=== PATIENT | female | born 1980 | race Caucasian/White ===

== ENCOUNTER 2022-11-07 01:39 | Day surgery (SDC) | payer OTHER, SELFPAY ==
[2022-10-30 19:05] VITALS: BMI 24.3
--- NOTE | 2022-10-30 19:06 | SUR.PREOP ---
Report to the Outpatient Waiting Room, entrance under the green pavilion located off [facility], at time _0700 on date 11/07/22 . Planned Procedure Time: _0900 . Time changes happen often and if your time is changed the preop area will call you the afternoon before. - You and your visitor will be asked to self-screen and do not enter if you have any COVID symptoms. - Only one visitor is requested with a max of two and NO children visitors are allowed at this time. - The patient visitor may be requested to leave or wait in car when not with patient due to distancing restrictions. - A mask is optional within the hospital. Patients may have clear liquids (water, carbonated beverages, clear teas, apple juice) until 3 hours prior to surgery with a maximum of 20 ounces. - No food from midnight until time of surgery - Infants may have breast milk until 4 hours before surgery, formula 6 hours prior to surgery. - Children will be allowed to drink immediately following surgery. If applicable, please bring a bottle or sippy cup to assist with drinking. Juice, water, soda, and popsicles are readily available. For infants on formula, please bring formula the day of surgery. Pacifiers are allowed. Take the following medications with a SIP of water the morning of surgery: __levothyroxine,alprazolam Medications to discontinue per physician n/a Date to take last dose____n/a Please no make-up, nail estonian, hairspray, perfume, deodorant, or body powder the day of surgery. No jewelry (including any body piercings) or valuables the day of surgery, leave them at home. Please take a shower or bath the night before, or the morning of, surgery with an antibacterial soap. Wear comfortable, loose fitting clothing. Children are encouraged to wear pajamas. - Jewelry must be removed prior to entering the operating room. Rings and piercings that are not removed may be cut off. - The hospital will not accept responsibility for valuables. - Please leave all valuables, including medications, at home the day of surgery. If you are going home after surgery, a licensed subway train driver must drive you home. - NO public transportation without another adult if you receive anesthesia. - We recommend that an adult stay with you for 24 hours following discharge. - We also recommend that you do not drive, make important decision, drink alcoholic beverages, or take any drugs that were not prescribed by your health care provider for at least 24 hours after your discharge time. For Pediatric surgeries, we recommend two adults accompany the child home. Follow any additional instructions given to you from your surgeon. If you or anyone in your household have experienced Covid symptoms in the past week, please notify your surgeon or the nurse liaison at the phone number below for possible testing. Telephone instructions given to _stacey blanco and asked if any additional questions and then verbalized understanding. Patient advised to call surgeon office or pre surgery nurse liaison [phone] if any additional questions.
[2022-11-07] VITALS (7 sets, daily range): BP systolic 107–166; BP diastolic 70–98; PULSE 61–94; RESP 14–16; TEMP 36.3–36.6; O2SAT 99–100
[2022-11-07] MEDS: ACETAMINOPHEN 500 MG TABLET 1000 MG PO (07:22)
[2022-11-07] MEDS: KETOROLAC 15 MG/ML VIAL (*BKC) IV PUSH (07:30)
[2022-11-07] MEDS: LACTATED RINGERS 1,000 ML 30 ML IV CONT (07:30)
--- NOTE | 2022-11-07 08:15 | PM.IMHP ---
H&P: HPI History of Present Illness Date/Time: 11/07/22 08:15 Chief Complaint: unwanted fertility Narrative: this patient is a 41-year-old female presents for female sterilization. She and I have agreed to perform laparoscopic bilateral salpingectomy. She understands risks, benefits, and alternatives. She has completed the informed consent process is ready to proceed. She understands injuries can occur that injuries can result in a prolonged hospitalization, more surgery, and severe illness. She understands there is risk of hemorrhage and infection. She understands the procedure in great detail. Review of Systems Review of Systems: All systems reviewed & are unremarkable except as noted in HPI and below Constitutional: Constitutional: Denies chills, Denies fatigue, Denies fever(s) and Denies weakness Eyes: Eyes: Denies blurry vision, Denies change in vision, Denies loss of peripheral vision, Denies loss of vision, Denies other visual disturbances and Denies eye pain ENT: Denies vertigo, Denies dizziness, Denies hearing loss, Denies mouth pain, Denies nasal obstruction, Denies neck mass and Denies neck pain Cardiovascular: Cardiovascular: Denies chest pain, Denies diaphoresis, Denies syncope, Denies leg edema and Denies dyspnea Respiratory: Respiratory: Denies chest congestion, Denies cough, Denies hemoptysis, Denies dyspnea and Denies wheezing Gastrointestinal: Gastrointestinal: Denies abdominal pain, Denies constipation, Denies diarrhea, Denies nausea and Denies vomiting Genitourinary: Genitourinary: Denies hematuria, Denies change in libido, Denies nocturia, Denies genital lesions, Denies flank pain and Denies urinary urgency Musculoskeletal: Musculoskeletal: Denies abnormal gait, Denies back pain, Denies myalgias, Denies arthralgias, Denies joint swelling, Denies muscle weakness and Denies neck pain Integumentary/Breasts: Skin/Breast: Denies swelling, Denies breast pain, Denies breast mass, Denies dry skin, Denies nipple discharge, Denies unusual bruising and Denies jaundice Neurologic: Denies Neuro-related abnormal movements, Denies Abnormal speech present, Denies abnormal gait, Denies behavioral changes, Denies confusion, Denies vertigo, Denies dizziness, Denies syncope, Denies loss of vision, Denies memory loss, Denies convulsions and Denies weakness Psychiatric: Psychiatric: Denies abnormal sleep pattern, Denies behavioral changes, Denies change in libido, Denies confusion, Denies depression, Denies anhedonia and Denies memory loss Endocrine: Endocrine: Reports no additional endocrine complaints, Denies change in libido and Denies fatigue Hematologic/Lymphatic: Hematologic/Lymphatic: Reports no additional hematologic/lymphatic complaints Allergic/Immunologic: Allergic/Immunologic: Reports no additional allergic/immunologic complaints and Denies wheezing PMFSH Social History Social History Smoking status: Never smoker Alcohol intake: current Drinks per week: 2 Living arrangements: with family Spiritual care concerns: No Meds Home Medications and Allergies Home Medications Medication Instructions Recorded Confirmed Type alprazolam 0.25 mg tablet 0.25 mg PO TID 10/30/22 11/07/22 History levothyroxine 100 mcg tablet 100 mcg PO DAILY 10/30/22 11/07/22 History Allergies Allergy/AdvReac Type Severity Reaction Status Date / Time No Known Allergies Allergy Verified 11/07/22 07:19 Vital Signs Vital Signs - 24 hr 11/07/22 07:06 Temperature 97.8 F Pulse Rate 94 Respiratory Rate 16 Blood Pressure 146/98 H Pulse Oximetry 100 Oxygen Delivery Room Air Exam Const: General: cooperative, healthy appearing, comfortable and no acute distress; No confusion Orientation/consciousness: oriented to person, oriented to place, oriented to time and No confusion HENMT: Head: normal to inspection Ears: external ears normal Face/Nose/Sinus: Normal external nose present and normal facial exam
--- NOTE | 2022-11-07 08:18 | WPDHPUPDATE1 ---
History and Physical Update Update Date/Time: 11/07/22 08:18 History and Physical has been reviewed, including an updated exam of the patient. There are NO changes in the patient's condition. Risks, benefits, and alternatives have been discussed and questions answered. Patient agrees to proceed with procedure.
--- NOTE | 2022-11-07 08:25 | WPDANESEPPF ---
Anes - Initial Pre Proc Eval Procedure: Operation Date: 11/07/22 09:00 Proposed Procedures p Laparoscopic Bilateral Salpingectomy - Chin Weeks MD Date/Time: 11/07/22 08:25 Surgeon: Chin Weeks MD Pre Op Diagnosis: Female Sterilization Patient Data Age: 41 Gender: F Height: 1.73 m Weight: 80.35 kg Last Vital Signs Temp 97.8 F 11/07/22 07:06 Pulse 94 11/07/22 07:06 Resp 16 11/07/22 07:06 BP 146/98 H 11/07/22 07:06 Pulse Ox 100 11/07/22 07:06 O2 Del Method Room Air 11/07/22 07:06 Allergies Allergy/AdvReac Type Severity Reaction Status Date / Time No Known Allergies Allergy Verified 11/07/22 07:19 Home Medications Medication Instructions Recorded Confirmed Type alprazolam 0.25 mg tablet 0.25 mg PO TID 10/30/22 11/07/22 History levothyroxine 100 mcg tablet 100 mcg PO DAILY 10/30/22 11/07/22 History Patient hx anesthesia problems: none Family hx anesthesia problems: none Results Review: All pre-operative results and documents have been reviewed as part of the pre-operative evaluation. [facility] Social History Social History Smoking status: Never smoker Alcohol intake: current Drinks per week: 2 Living arrangements: with family Spiritual care concerns: No Anes - Eval Final PreProcedure Day of Procedure 11/07/22 08:25 Patient weight: normal Heart: regular rate and rhythm Lungs: clear to auscultation Airway: Mallampati scale class II Neurological: alert and oriented Last oral intake: >/= 8 hours ASA classification: II Emergent: no Anesthetic plan: proceed Anesthesia type and monitoring: general ETT and standard monitoring Results Review: All pre-operative results and documents have been reviewed as part of the pre-operative evaluation. Informed Consent: The patient's anesthetic plan and its attendant risks and benefits were discussed with the patient/family/POA. Questions were solicited and answers provided to the satisfaction of the patient/family/POA.
--- NOTE | 2022-11-07 09:15 | W.PM.PROC2 ---
Procedure Note - Detailed Date of Procedure 11/07/22 Pre-op Diagnosis Female Sterilization Post-op Diagnosis Same Procedure Performed Laparoscopic bilateral salpingectomy Surgeon Chin Weeks MD Anesthesia General Indications Unwanted fertility Findings Normal pelvic anatomy Description of Procedure The patient was taken the operating room. She was prepped and draped in the dorsal lithotomy position after induction of general anesthesia. A 5 mm skin incision was made in the left upper quadrant of the abdominal skin. A 5 mm trocar was inserted the intra-abdominal cavity under direct visualization of the scope. Pneumoperitoneum was achieved. A 5 mm trocar was inserted in the left lower quadrant identical fashion. A 5 mm infraumbilical trocar was inserted in identical fashion as well. The bilateral fallopian tubes were removed. This was done by using a LigaSure cautery. The mesosalpinx adjacent to the tube was cauterized transected with LigaSure. This was initiated in the area the ovary and in a stepwise fashion moved medially to the area of the cornu of the uterus. Once there the fallopian tube was cauterized and transected. This was done in identical fashion on each side. The fallopian tubes were taken out through the left lower quadrant trocar site. The pneumoperitoneum was reduced. The trocars removed. The skin was closed with subcuticular 4 Monocryl and covered with Dermabond. She was taken to cover stable condition. Sponge lap and needle counts were correct x2. Estimated Blood Loss 5 Drains No Packing No Pathology Yes Complications No immediate complications Condition Stable Disposition PACU
[2022-11-07] MEDS: fentaNYL CITRATE INJ (*CRX) 100 MCG/2 ML VIAL 25 MCG IV PUSH ×4 (09:52→10:07)
[2022-11-07] MEDS: oxyCODONE HCL (*CRX) 5 MG TAB IR PO (10:34)
== END 2022-11-07 11:10 | disposition home or self-care (01) ==
PROVIDERS: PCP Family Medicine; Visit Provider Obstetrics & Gynecology
PROC: (CPT 49320; principal; 2022-11-07 09:00)
DX: Z30.2 Encounter for sterilization (principal)
CPT/HCPCS: 58661; 88302; A9270; J1100; J1885; J2250; J2405; J2704; J2710; J3010; J7030; J7120

== ENCOUNTER → 2023-12-13 14:43 | Outpatient (CLI) | payer OTHER, SELFPAY ==
--- NOTE | ~2023-12-13 | MM_ITS ---
EXAMINATION: MM screening samreen BI w [facility] HISTORY: Baseline screening mammogram TECHNIQUE: Craniocaudal and mediolateral oblique 3-D tomosynthesis images were obtained and synthetic 2-D images were generated. CAD analysis was submitted and interpreted. COMPARISON: None, baseline BREAST PARENCHYMAL COMPOSITION: There are scattered areas of fibroglandular density. FINDINGS: RIGHT BREAST: An asymmetry is present in the far posterior third of the breast in line with the nippl e axis on the craniocaudal view. LEFT BREAST: There are asymmetries in the anterior third of the inner breast 4 cm from the nipple in the middle third of the outer breast 7 cm from the nipple on the craniocaudal view. IMPRESSION: 1. Bilateral breast asymmetries. 2. Additional mammographic views and possible breast ultrasound are recommended to evaluate the breas t asymmetries and establish a baseline given that this is the first mammographic examination. BI-RADS Category 0: Incomplete: Needs additional imaging evaluation. Reviewed, dictated and finalized at location A. ONNEL MANAGER IMPRESSION: 1. Bilateral breast asymmetries. 2. Additional mammographic views and possible breast ultrasound are recommended to evaluate the breast asymmetries and establish a baseline given that this is the first mammographic examination. BI-RADS Category 0: Incomplete: Needs additional imaging evaluation.
== END ==
PROVIDERS: PCP Obstetrics & Gynecology; Visit Provider Obstetrics & Gynecology
DX: Z12.31 Encounter for screening mammogram for malignant neoplasm of breast (principal); R92.8 Other abnormal and inconclusive findings on diagnostic imaging of breast
CPT/HCPCS: 77063; 77067

== ENCOUNTER 2024-02-06 08:47 | Outpatient (CLI) | payer OTHER, SELFPAY ==
--- NOTE | ~2024-02-06 | MM_ITS ---
EXAMINATION: MM diagnostic samreen BI w [facility] HISTORY: . Bilateral mammographic asymmetries reported on 12/13/2023 screening mammogram TECHNIQUE: Additional 3-D tomosynthesis images of both breasts were performed and synthetic 2-D image s were generated. CAD analysis was submitted and interpreted. COMPARISON: 12/13/2023 bilateral screening mammogram FINDINGS: In the posterior central mid to upper right breast on coned compression Tomosynthesis image 48/85 is low density circumscribed 1.4 mm opacity which appears probably benign.6 month follow-up di agnostic right mammogram is recommended. No suspicious mass or architectural distortion of either breast is detected otherwise. The areas of a symmetry reported on the left appear normal. IMPRESSION: 1. Probable benign millimeter mass in posterior central mid to upper right breast 2. 6 month diagnostic right mammogram follow-up is recommended, with ultrasound if required BI-RADS category 3, probably benign findings. Reviewed, dictated and finalized at location A. EF CAPTAIN IMPRESSION: 1. Probable benign millimeter mass in posterior central mid to upper right dem[address] st 2. 6 month diagnostic right mammogram follow-up is recommended, with ultrasound if required BI-RADS category 3, probably benign findings.
== END 2024-02-06 08:48 ==
LOC: MICIMG 08:49
PROVIDERS: PCP Obstetrics & Gynecology; Visit Provider Obstetrics & Gynecology
DX: R92.2 Inconclusive mammogram (principal); R92.8 Other abnormal and inconclusive findings on diagnostic imaging of breast
CPT/HCPCS: 77062; 77066; G0279

== ENCOUNTER 2024-04-02 09:05 | Outpatient (CLI) | payer OTHER, SELFPAY | END 2024-04-02 09:06 | disposition home or self-care (01) | LOC: ANHGOSHLAB 09:06 | PROVIDERS: PCP Family Medicine; Visit Provider Family Medicine | DX: E03.9 Hypothyroidism, unspecified (principal) | CPT/HCPCS: 36415; 84443 ==

== ENCOUNTER 2024-08-11 08:16 | Outpatient (CLI) | payer OTHER, SELFPAY ==
--- NOTE | ~2024-08-11 | MM_ITS ---
EXAMINATION: MM diagnostic samreen RT w [facility] HISTORY: Tiny probable benign density right breast TECHNIQUE: 3-D tomosynthesis images of the right breast were performed and synthetic 2-D images were generated. CAD analysis was submitted and interpreted. COMPARISON: 12/13/2023, 02/06/2024 BREAST PARENCHYMAL COMPOSITION:Not Dense. There are scattered areas of fibroglandular density. FINDINGS: Parenchymal pattern of the right breast is unchanged. Stable tiny density posterior right b reast, compatible benign finding. No suspicious mass or distortion seen. No suspicious parenchymal ca lcification. IMPRESSION: No mammographic evidence for malignancy. Return to routine annual screening advised. BI-RADS Category 1: Negative Reviewed, dictated and finalized at location . IMPRESSION: No mammographic evidence for malignancy. Return to routine annual screening adv ised. BI-RADS Category 1: Negative
== END 2024-08-11 08:17 | disposition home or self-care (01) ==
PROVIDERS: PCP Obstetrics & Gynecology; Visit Provider Obstetrics & Gynecology
DX: R92.8 Other abnormal and inconclusive findings on diagnostic imaging of breast (principal)
CPT/HCPCS: 77061; 77065; G0279

== ENCOUNTER 2024-10-12 09:06 | Outpatient (CLI) | payer OTHER, SELFPAY ==
[2024-10-12 19:31] LABS: Alanine Aminotransferase 65 U/L (6-35); Albumin Level 4.5 g/dL (3.5-5.1); Alkaline Phosphatase 114 U/L (38-126); Anion Gap 9 mmol/L (4-12); Aspartate Amino Transferase 68 U/L (14-36); Bilirubin,Total 1.1 mg/dL (0.2-1.3); Blood Urea Nitrogen 17 mg/dL (7-17); Calcium 9.5 mg/dL (8.4-10.2); Carbon Dioxide 25 mmol/L (22-30); Chloride 100 mmol/L (98-107); Cholesterol 258 mg/dL (0-200); Estimated Glomerular Filt Rate > 60; Glucose 78 mg/dL (65-110); HDL Direct 70 mg/dL; Potassium 4.2 mmol/L (3.4-5.0); Sodium 134 mmol/L (137-145); Triglycerides 172 mg/dL (<150)
[2024-10-12 19:42] LABS: LDL Cholesterol Direct 121 mg/dL
[2024-10-12 21:52] LABS: Vitamin D 25 Hydroxy 54.1 ng/mL
== END 2024-10-12 09:07 | disposition home or self-care (01) ==
LOC: ANHGOSHLAB 09:07
PROVIDERS: PCP Family Medicine; Visit Provider Family Medicine
DX: E78.5 Hyperlipidemia, unspecified (principal); Z13.29 Encounter for screening for other suspected endocrine disorder; Z13.228 Encounter for screening for other metabolic disorders; E55.9 Vitamin D deficiency, unspecified
CPT/HCPCS: 36415; 80053; 80061; 82306; 84443

== ENCOUNTER 2024-10-13 13:18 | Outpatient (CLI) | payer OTHER, SELFPAY ==
--- NOTE | ~2024-10-13 | US_ITS ---
EXAMINATION: US thyroid DATE: 10/13/2024 13:34 INDICATION: Nontoxic goiter, unspecified. TECHNIQUE: Multiple ultrasound images of the thyroid were obtained. COMPARISON: None. FINDINGS: The right thyroid lobe measures 2.4 x 1.0 x 0.9 cm. The left thyroid lobe measures 2.7 x 0.9 x 0.9 c m. There is normal echotexture and echogenicity throughout the thyroid gland. No discrete nodules id entified. Normal vascular flow is present. IMPRESSION: 1. Normal thyroid. Reviewed, dictated and finalized at location A. DATION SOFTWARE FACILITATOR IMPRESSION: 1. Normal thyroid.
== END 2024-10-13 13:19 | disposition home or self-care (01) ==
LOC: MICIMG 13:18
PROVIDERS: PCP Family Medicine; Visit Provider Family Medicine
DX: E04.9 Nontoxic goiter, unspecified (principal)
CPT/HCPCS: 76536

== ENCOUNTER 2025-01-07 11:18 | Outpatient (CLI) | payer OTHER, SELFPAY ==
--- NOTE | ~2025-01-07 | MM_ITS ---
EXAMINATION: MM screening samreen BI w [facility] HISTORY: Screening TECHNIQUE: Craniocaudal and mediolateral oblique 3-D tomosynthesis images were obtained and synthetic 2-D images were generated. CAD analysis was submitted and interpreted. COMPARISON: Comparison to multiple prior studies sequentially, with oldest reviewed study dated 12/13. BREAST PARENCHYMAL COMPOSITION: Not dense: There are scattered areas of fibroglandular density. FINDINGS: There is no evidence of suspicious mass, calcification, or architectural distortion to sugg est malignancy in either breast. There has been no suspicious interval change. IMPRESSION: 1. No mammographic evidence of malignancy. 2. Recommend routine screening mammography in one year. BI-RADS Category 1: Negative Reviewed, dictated and finalized at location B. MENTER
== END 2025-01-07 11:19 | disposition home or self-care (01) ==
PROVIDERS: PCP Obstetrics & Gynecology; Visit Provider Obstetrics & Gynecology
DX: Z12.31 Encounter for screening mammogram for malignant neoplasm of breast (principal)
CPT/HCPCS: 77063; 77067

== ENCOUNTER 2025-07-06 07:59 | Outpatient (CLI) | payer OTHER, SELFPAY ==
--- OUTSIDE RECORDS SUMMARY | 2025-07-06 08:04 | XMS_ITS | Encounter Summary ---
Author Organization [facility] Address [address] [facility] [place] [address] Phone Care Team Providers Care Sales Support Specialist Name Role Phone Kevin Madden MD Unavailable [phone] Reason for Visit * Reason Comments Medication Refill Encounter Details Date Type Department Care Team (Late st Contact Info) Description 12/30/2021 [facility] - Normal [address] [place] [address] Pollo Cisse MD [address] [place] [address] Medication Refill Social History Tobacco Use Types Packs/Day Years Used Date Smoking Tobacco: Never Smokeless Tobacco: Never Alcohol Use Standard Drinks/Week Comments Yes 0 (1 standard drink = 0.6 oz pur e alcohol) Social PHQ-2 Answer Date Recorded PHQ-2 Score 0 10/13/2019 Sexually Active Control Partners Comments Yes Pill Male Comments No Sex and Gender Information Value Date Recorded Sex Assigned at Not on file 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 Vortioxetine HBr (Trintellix) 10 MG Tablet 90 Tablet 1 06/01/2021 Sig - Route: Take 1 Tablet by mouth daily. - Oral Last ordered: 06/01/21 Last office visit: 06/01/21 Dr. Cisse partial appt note copied below: Problem 1: Depression. Currently doing well. Continue the Trintellix Problem 2: Anxiety. This has improved. It is not completely gone but it is not sufficiently bothersome that she wants to change the medication ?? Return in 6 months Next office visit: 04/12/22 Refill pended. Note routed to provider for review. ITAL CLINIC ASSISTANT documented in this encounter Plan of Treatment Not on file documented as of this encounter Visit Diagnoses Not on filedocumented in this encounter Additional Health Concerns Assessment Noted Time PHQ-9 Depression Total Score: 0 10/13/20 19 9:41 AM HOSPITAL CLINIC ASSISTANT documented as of this encounter Care Teams Sales Support Specialist Relationship Specialty Start Date End Date Kevin Madden MD Consulting Physician Obstetrics & Gynecology 12/25/17 documented as of this encounter
--- OUTSIDE RECORDS SUMMARY | 2025-07-06 08:04 | XMS_ITS | Encounter Summary ---
Author Organization [facility] Address [address] [place] [address] Phone Care Team Providers Care Humidifier Operator Name Role Phone Clay Alvarez MD Primary Care Provider [phone] Kevin Madden MD Unavailable [phone] Reason for Visit * Reason Onset Date Comments Medication Refill Trintellix Medication Refill 09/22/2020 Encounter Details Date Type Department Care Team (Late st Contact Info) Description 09/19/2020 Refill [facility] - Normal [address] [place] [address] Claudia Peters, JERRELL, WEARING APPAREL PRESSER Medication Refill (Trintellix); Medication Refill Social History Tobacco Use Types [...] on file Legal Sex 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 New script prepped for provider. Trintellix 5 MG Tablet 60 Tab 0 10/12/2020 Sig: TAKE 1 TABLET BY MOUTH EVERY DAY Sent to pharmacy as: Trintellix 5 MG Oral Tablet (Vortioxetine HBr) Class: E Prescribe E-Prescribing Status: Receipt confirmed by pharmacy (09/20/2020 ??1:12 PM CDT) * Telephone Encounter - Niesha Merchant RN - 09/20/2020 10:56 AM CDT Refill request received from pharmacy. Trintellix 5 MG Tablet 90 Tab 0 07/12/2020 Sig: TAKE 1 TABLET BY MOUTH EVERY DAY Last ordered: Last office visit: 06/29/20 Saumya HERNANDES partial appt note copied below: Medical decision making: ?? Problem 1-G AD/depression-increase Trintellix??5 mg 2 tablets daily. ??Counseling??encouraged. ?? Proble 2-memory disturbance-continue to monitor. Next office visit: 09/26/20 Refill pended. Note routed to provider for review. documented in this encounter Plan of Treatment Not on file documented as of this encounter Visit Diagnoses Diagnosis Depression, unspecified depression type documented in this encounter Additional Health Concerns Assessment Noted Time PHQ-9 Depression Total Score: 0 10/13/20 19 9:41 AM CARPET INSTALLATION SPECIALIST documented as of this encounter Care Teams Humidifier Operator Relationship Specialty Start Date End Date Clay Alvarez MD [address] [place] [address] PCP - General Family Medicine 12/23/17 03/15/21 Kevin Madden MD [address] [place] [address] Consulting Physician Obstetrics & Gynecology 12/25/17 documented as of this encounter
--- OUTSIDE RECORDS SUMMARY | 2025-07-06 08:04 | XMS_ITS | Patient Health Record ---
Author Organization [facility] Address [address] [facility] [address] [place] [address] Care Team Providers Care Cotton Weigher Operator Name Role Phone Veronique Amaro Unavailable [phone] Reason For Referral No Information Medications Medication SIG (Take, Route, Frequency, Duration) Notes Start Date End Date Status Scf-Sq-Luzppktk 0.18/0.215/0.25 MG-25 MCG Oral Ac tive Levothyroxine Sodium 125 MCG Oral Active Escitalopram Oxalate 10 MG Oral Active Ergocalciferol 1.25 MG (51320 UT) Oral Active Xyc-Jn-Hludyk 0.18/0.215/0.25 MG-25 MCG Oral Ac tive Trintellix 10 MG Oral Act dwayne ALPRAZolam 0.25 MG Oral A ctive Levothyroxine Sodium 100 MCG Oral Active Plan Of Treatment No Information Insurance Providers Payer Name Payer Address Payer Phone Subscriber Number Group Number Insured Name Patient Relationship to Insured Coverage Start Date Coverage End Date [employer] [address] [place] [address] [id number] CANDIE FORREST Self - patient is the insured
--- OUTSIDE RECORDS SUMMARY | 2025-07-06 08:04 | XMS_ITS | Encounter Summary ---
Author Organization [facility] Address [address] [facility] 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 Trintellix 10 MG Tablet [Pharmacy Med Name: TRINTELLIX 10 MG TABLET] 90 Tablet 0 Sig: TAKE 1 TABLET BY MOUTH EVERY DAY JUDITH: 09/26/2020 NOV: 06/01/21 Last note: Medical decision making: ?? Problem 1-G AD/depression-continue??Trintellix??10 mg daily. ??Counseling??encouraged. ?? Proble 2-memory disturbance-continue to monitor. ?? Education Provided: AVS available via [employer]. ? Follow up in??3??months. Refill pended for review. documented in this encounter Plan of Treatment Not on file documented as of this encounter Visit Diagnoses Not on filedocumented in this encounter Additional Health Concerns Assessment Noted Time PHQ-9 Depression Total Score: 0 10/13/20 19 9:41 AM BRUSH LOADER AND HANDLE ATTACHER documented as of this encounter Care Teams Recorder Of Deeds Relationship Specialty Start Date End Date Kevin Madden MD Consulting Physician Obstetrics & Gynecology 12/25/17 documented as of this encounter
--- OUTSIDE RECORDS SUMMARY | 2025-07-06 08:04 | XMS_ITS | Encounter Summary ---
Author Organization [facility] Address [address] 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 Disp Refills Start End TRINTELLIX 5 MG Tablet 90 Tab 0 Sig: TAKE 1 TABLET BY MOUTH EVERY DAY Last ordered: 04/27/20 Last office visit: 06/29/20 CECILIO Allen partial appt note copied below: Medical decision making: ?? Problem 1-G AD/depression-increase Trintellix??5 mg 2 tablets daily. ??Counseling??encouraged. ?? Proble 2-memory disturbance-continue to monitor. Next office visit: No appointment scheduled. Routed to KAITLYNN Cortez to schedule. Refill pended. Note routed to provider for review. documented in this encounter Plan of Treatment Not on file documented as of this encounter Visit Diagnoses Diagnosis Depression, unspecified depression type documented in this encounter Additional Health Concerns Assessment Noted Time PHQ-9 Depression Total Score: 0 10/13/20 19 9:41 AM LISW documented as of this encounter Care Teams Chief Customer Officer Relationship Specialty Start Date End Date Clay Alvarez MD [address] [place] [address] PCP - General Family Medicine 12/23/17 03/15/21 Kevin Madden MD [address] [place] [address] Consulting Physician Obstetrics & Gynecology 12/25/17 documented as of this encounter
--- OUTSIDE RECORDS SUMMARY | 2025-07-06 08:04 | XMS_ITS | Clinical Summary ---
Author Organization [facility] Address [address] [place] [address] Phone Care Team Providers Care Allergy Specialist Name Role Phone Kevin Madden MD Unavailable [phone] Allergies No known active allergies Medications Norgestimate-E thinyl Estradiol (AVO-RK-YEFOFP ) 0.18/0.215/0.2 5 MG-25 MCG TabletIndicati ons: Control Take 1 Tab by mouth daily. Active cyanocobalamin (VITAMIN B-12) 1000 MCG/ML SolutionIndica tions:Vitamin B12 deficiency 1 mL by Intramuscular route every 30 days. 1 mL 8 Active Additional Information Patient not taking.Reported on 10/13/2019 Calcium Carb-Cholecalc iferol (CALCIUM 600 + D PO) Take by mouth. Activ e levothyroxine (SYNTHROID) 125 MCG Tablet 0 Active Trintellix 10 MG Tablet TAKE 1 TABLET BY MOUTH EVERY DAY 90 Tablet 2 Active Active Problems Problem Noted Date Diagnosed Date MARTHA (generalized anxiety disorder) 03/26/2018 Complaints of memory disturbance 03/26/2018 Immunizations Immunization Administration Dates Next Due DTP Vaccine 04/08/1987, 3,04/26/1982,1981,02/24/1982 Hepatitis B Vaccine, Pediatric/adolescent 12/16/1997,07/16/1997,06/11/1997 Influenza Vaccine greater than 3 yrs 09/24/2019, 09/06/2017 Influenza Vaccine, Quadrivalent, PF 09/09/2015 Influenza, Seasonal, Injecta ble, Undefined 10/10/2016 MMR Vaccine 06/08/1992,03/27/1983 OPV 04/08/1987, 3,04/26/1982,1981,01/27/1982 TD VACCINE 06/08/1994 Social History Tobacco Use Types Packs/Day Years Used Date Smoking Tobacco: Never Smokeless Tobacco: Never Tobacco Cessation:Counseling Given: Yes Alcohol Use Standard Drinks/Week Comments Yes 0 (1 standard drink = 0.6 oz pur e alcohol) Social PHQ-2 Answer Date Recorded PHQ-2 Score 0 10/13/2019 Sexually Active Control Partners Comments Yes Pill Male Comments No Sex and Gender Information Value Date Recorded Sex Assigned at Not on file 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 Gender Identity Not on file Sexual Orientation Not on file Last Filed Vital Signs Vital Sign Reading Time Taken Comments Blood Pressure 132/82 06/01/2021 10:18 AM CDT Pulse 88 06/01/2021 10:18 AM CDT Temperature 36.8 C (98.2 F) 05/27/2018 3:54 PM CDT Respiratory Rate 20 06/01/2021 10:18 AM CDT Oxygen Saturation 98% 10/13/2019 9:39 AM JOB 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 Inhaled Oxygen Concentration - - Weight 88 kg (194 lb) 06/01/2021 10:18 AM CDT Height 172.7 cm (5' 8) 06/01/2021 10:18 AM CDT Body Mass Index 29.5 06/01/2021 10:18 AM CDT Plan of Treatment Health Maintenance Due Date Last Done Comments Hepatitis C Virus (HCV) Screening 1981 DTaP/Tdap/Td Immunization (6 - Tdap) 06/09/1994 06/08/1994, 04/08/1987, 06/12/1983, Additional history exists Human Papillomavirus (HPV) Immunization (1 - 3-dose SCDM series) 2008 HPV/Cotest 2011 Cervical Cancer Screening (CCS) 12/24/2019 Pap Smear 12/24/2019 12/24/2016 SARS-COV-2 Immunization ( season) 2024 12/07/2021, 04/05/2021, 03/08/2021 Influenza Immunization (#1) 08/02/202509/02, 09/24/2019, 09/25/2018, Additional history exists Respiratory Syncytial Virus (RSV) Immunization (Adult) (1 - 1-dose 75+ series) 2056 Hepatitis B Immunization Completed 998, 07/16/1997, 06/11/1997 Meningococcal Immunization (ACWY) Aged Out No longer eligible based on patient's age to complete this topic Pneumococcal Immunization Combined Aged Out No longer eligible based on patient's age to complete this topic Rotavirus Immunization Aged Out No lo nger eligible based on patient's age to complete this topic Procedures Procedure Name Priority Date/Time Associated Diagnosis Comments PATHOLOGY CYTOLOGY MANUFACTURING RECRUITER Routine 12/24/2016 from Last 3 Months or Most Recently Relevant to Health Maintenance Results * PATHOLOGY CYTOLOGY MANUFACTURING RECRUITER (12/24/2016) Specimen of unknown material (specimen) Kevin Madden MD PATHOLOGY/CYTOLOGY ORDERABLES Final Result from Last 3 Months or Most Recently Relevant to Health Maintenance Insurance [place] [address] Care Teams Allergy Specialist Relationship Specialty Start Date End Date Kevin Madden MD Consulting Physician Obstetrics & Gynecology 12/25/17
[2025-07-06 19:19] LABS: Alanine Aminotransferase 56 U/L (6-35); Albumin Level 4.6 g/dL (3.5-5.1); Alkaline Phosphatase 91 U/L (38-126); Anion Gap 10 mmol/L (4-12); Aspartate Amino Transferase 52 U/L (14-36); Bilirubin,Total 0.9 mg/dL (0.2-1.3); Blood Urea Nitrogen 19 mg/dL (7-17); Calcium 9.7 mg/dL (8.4-10.2); Carbon Dioxide 25 mmol/L (22-30); Chloride 100 mmol/L (98-107); Cholesterol 260 mg/dL (0-200); Estimated Glomerular Filt Rate > 60; Glucose 83 mg/dL (65-110); HDL Direct 68 mg/dL; Potassium 4.0 mmol/L (3.4-5.0); Sodium 135 mmol/L (137-145); Total Protein 8.2 g/dL (6.3-8.2); Triglycerides 119 mg/dL (<150)
[2025-07-06 19:30] LABS: Free T4 Free Thyroxine 1.36 ng/dL (0.78-2.19)
[2025-07-06 19:33] LABS: Hematocrit 39.4 % (37.0-47.0); Hemoglobin 13.3 g/dL (12.0-15.0); Mean Corpuscular HGB Conc 33.8 g/dl (32-36); Mean Corpuscular Hemoglobin 31.7 pg (26-34); Mean Corpuscular Volume 94.0 fl (80-100); Platelet Count Result 339 k/mm3 (150-375); Red Blood Count 4.19 M/mm3 (4.2-5.4); White Blood Count 5.3 K/mm3 (4.5-10.0)
[2025-07-06 20:05] LABS: Thyroid Stimulating Hormone 2.350 uIU/mL (0.465-4.680)
== END 2025-07-06 08:00 | disposition home or self-care (01) ==
LOC: ANHGOSHLAB 08:00
PROVIDERS: PCP Family Medicine; Visit Provider Family Medicine
DX: E78.5 Hyperlipidemia, unspecified (principal); E03.9 Hypothyroidism, unspecified; E66.9 Obesity, unspecified
CPT/HCPCS: 36415; 80053; 80061; 84439; 84443; 85027